=== PATIENT | male | born 1965 | race American Indian/Alaskan Native ===

== ENCOUNTER 2019-10-13 10:42 | Outpatient (CLI) | payer BC ==
--- NOTE | 2019-10-13 13:12 | XRay Report ---
BONE SURVEY METASTATIC HISTORY: Monoclonal paraproteinemia COMPARISON: None. FINDINGS: Multiple images of the axial and proximal appendicular skeleton were obtained. No suspiciou s blastic or lytic bony lesions are identified. There are moderate degenerative changes throughout th e spine. Signer Name: Jeremiah Mercado Jr, MD Signed: 10/13/2019 1:08 PM Workstation Name: [id number]
== END 2019-10-13 10:43 | disposition home or self-care (01) ==
LOC: XRAY 10:42
PROVIDERS: ATTEND Internal Medicine Hematology & Oncology
DX: M47.814 Spondylosis without myelopathy or radiculopathy, thoracic region (principal); D47.2 Monoclonal gammopathy
CPT/HCPCS: 77074